=== PATIENT | male | born 2000 | race Caucasian/White ===

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

== ENCOUNTER 2019-02-22 13:53 | Emergency (ER) | payer OTHER ==
[~2019-02-22] VITALS: Ht 182.9 cm; Wt 83.9 kg
[2019-02-22 14:00] VITALS: Ht 182.9 cm; Wt 83.9 kg
[2019-02-22 15:40] VITALS: BP 133/58
== END 2019-02-22 15:40 | disposition home or self-care (01) ==
LOC: ED 13:53
DX: S39.012A Strain of muscle, fascia and tendon of lower back, initial encounter (principal); X50.9XXA Other and unspecified overexertion or strenuous movements or postures, initial encounter; Y93.89 Activity, other specified; Y92.89 Other specified places as the place of occurrence of the external cause; Y99.8 Other external cause status

== ENCOUNTER 2019-03-26 15:31 | Emergency (ER) | payer OTHER ==
[~2019-03-26] VITALS: Ht 182.9 cm; Wt 85.7 kg
[2019-03-26 15:35] VITALS: BP 126/65; Ht 182.9 cm; Wt 85.7 kg
== END 2019-03-26 16:46 | disposition home or self-care (01) ==
LOC: ED 15:31
DX: D18.01 Hemangioma of skin and subcutaneous tissue (principal); J45.909 Unspecified asthma, uncomplicated; Z98.890 Other specified postprocedural states

== ENCOUNTER 2019-08-26 06:06 | Emergency (ER) | payer SELFPAY ==
[~2019-08-26] VITALS: Ht 182.9 cm; Wt 88.5 kg
[2019-08-26 07:07] VITALS: BP 137/86
== END 2019-08-26 07:07 | disposition home or self-care (01) ==
LOC: ED 06:06
DX: S39.012A Strain of muscle, fascia and tendon of lower back, initial encounter (principal); J45.909 Unspecified asthma, uncomplicated; X58.XXXA Exposure to other specified factors, initial encounter; Y93.89 Activity, other specified; Y92.89 Other specified places as the place of occurrence of the external cause; Y99.8 Other external cause status

== ENCOUNTER 2020-02-16 08:41 | Emergency (ER) | payer BC ==
[~2020-02-16] VITALS: Ht 182.9 cm; Wt 85.7 kg
[2020-02-16 08:51] VITALS: Ht 182.9 cm; Wt 85.7 kg
[2020-02-16 10:16] LABS: UA SPECIFIC GRAVITY 1.025 (1.005-1.035); microscopic required? YES; urine erythrocyte TRACE (NEGATIVE)
[2020-02-16 11:42] VITALS: BP 123/79
== END 2020-02-16 11:42 | disposition home or self-care (01) ==
LOC: ED 08:41
PROVIDERS: Emergency Medicine
DX: M43.17 Spondylolisthesis, lumbosacral region (principal); J45.909 Unspecified asthma, uncomplicated
CPT/HCPCS: J1100; J1885